=== PATIENT | female | born 1965 | race Caucasian/White ===

== ENCOUNTER 2018-01-28 16:40 | Emergency (ER) | payer OTHER, BC ==
[2018-01-28] MEDS: ONDANSETRON (ODT) 4 MG TAB ODT (17:25)
[2018-01-28] MEDS: LORAZEPAM 0.5 MG TAB PO (17:25)
== END 2018-01-28 18:41 | disposition home or self-care (01) ==
LOC: FTE 16:40
DX: F41.9 Anxiety disorder, unspecified (principal); F43.0 Acute stress reaction; E11.9 Type 2 diabetes mellitus without complications
CPT/HCPCS: 82962; 93005; 99283-25